=== PATIENT | female | born 2000 | race Caucasian/White ===

== ENCOUNTER 2019-11-21 21:09 | Emergency (ER) | payer SELFPAY ==
[2019-11-21 21:24] VITALS: BP 140/83
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
== END 2019-11-21 21:58 | disposition home or self-care (01) ==
LOC: UCCORT 21:09
DX: M54.2 Cervicalgia (principal); V47.5XXA Car driver injured in collision with fixed or stationary object in traffic accident, initial encounter; Y92.411 Interstate highway as the place of occurrence of the external cause
CPT/HCPCS: 72125; 99203; G0463